=== PATIENT | male | born 1995 ===

== ENCOUNTER 2020-08-10 10:11 | Outpatient (REF) | payer MEDICAID, SELFPAY ==
[2020-08-15 13:56] LABS: SARS-CoV-2 RNA Undetected (Undetected); SARS-CoV-2 Specimen Source Nasal
== END 2020-08-10 10:31 ==
LOC: NCHCN 10:11
PROVIDERS: PCP Physician Assistant Medical; Visit Provider Internal Medicine
DX: Z20.828 Contact with and (suspected) exposure to other viral communicable diseases (principal)
CPT/HCPCS: U0003

== ENCOUNTER 2021-01-24 18:33 | Outpatient (REF) | payer MEDICAID, SELFPAY ==
[2021-01-26 09:22] LABS: HIV-1/2 Ag & Ab Screen Negative (Negative)
[2021-01-26 09:45] LABS: Hepatitis C Ab w Rflx HCV PCR Negative (Negative)
[2021-01-26 10:04] LABS: Syphilis Serology (RPR) Negative (Negative)
[2021-01-26 15:09] LABS: GC Result Negative (Negative)
[2021-01-26 15:14] LABS: Chlamydia Result Positive (Negative)
== END 2021-01-24 18:34 | disposition home or self-care (01) ==
LOC: NCHCN 18:33
PROVIDERS: PCP Physician Assistant Medical; Visit Provider Physician Assistant
DX: Z11.3 Encounter for screening for infections with a predominantly sexual mode of transmission (principal); Z11.4 Encounter for screening for human immunodeficiency virus [HIV]; Z11.59 Encounter for screening for other viral diseases
CPT/HCPCS: 86803; 87389; 87491; 87591; 86592

== ENCOUNTER 2024-06-02 18:33 | Outpatient (REF) | payer BC, SELFPAY ==
[2024-06-04 09:36] LABS: HIV-1/2 Ag & Ab Screen Negative (Negative)
[2024-06-04 09:49] LABS: Hepatitis C Ab w Rflx HCV PCR Negative (Negative)
[2024-06-04 12:25] LABS: Chlamydia Result Negative (Negative); GC Result Negative (Negative)
[2024-06-04 13:03] LABS: Syphilis Serology (RPR) Negative (Negative)
== END 2024-06-02 18:34 | disposition home or self-care (01) ==
LOC: LBN 18:33
PROVIDERS: PCP Physician Assistant Medical; Visit Provider Nurse Practitioner Family
DX: Z11.3 Encounter for screening for infections with a predominantly sexual mode of transmission (principal); R30.0 Dysuria; R82.89 Other abnormal findings on cytological and histological examination of urine
CPT/HCPCS: 86803; 87389; 87491; 87591; 86592; 87086